=== PATIENT | female | born 1985 | race American Indian/Alaskan Native ===

== ENCOUNTER 2019-12-04 19:46 | Emergency (ER) | payer MEDICARE ==
[2019-12-04] MEDS ORDERED: SODIUM CHLORIDE 0.9% 1000 ML 1,000 ML IV ONE (20:32)
[2019-12-04] MEDS ORDERED: levETIRAcetam 1000 MG/NS 0.75% 1,000 MG/100 ML BAG IV ONE (20:33)
--- NOTE | 2019-12-04 20:34 | Emergency Department Report ---
ED Seizure HPI - General Chief Complaint: Altered Mental Status Stated Complaint: SEIZURE Time Seen by Provider: 12/04/19 20:05 Source: EMS Mode of arrival: Stretcher Limitations: Altered Mental Status - History of Present Illness Initial Comments: Patient is a 34-year-old female that presents emergency room for seizure activity. Patient states she feels almost back to baseline except for being a little fatigued. Patient states she has approximately 3 seizures per week. Patient states she sees a neurologist. Patient states she is compliant with her medications. Patient denies recent trauma. Patient states that she had an aura of the seizure coming on she was able to sit down. Patient states she does not know how long the seizure lasted. Patient denies chest pain. Patient denies shortness of breath. Patient denies any pain at this time. Patient denies any physical complaints except for fatigue. Patient states that she always has difficulties talking and has been going on for many years after seizures. Patient states she is seeing a new neurologist and he is making changes to her seizure medications. Patient denies recent travel. Patient denies recent international travel. Patient denies exposure to the novel coronavirus. Patient denies sick contacts. Patient denies fever and chills. Patient denies cough. Patient denies diarrhea. Patient denies coming in contact with anybody with symptoms of the novel coronavirus. MD Complaint: seizure -: Sudden Description of Episode: loss of consciousness, tonic-clonic movement, post-event confusion Witnessed:: No Trauma: No Seizure History: known seizure disorder, compliant with medication Place: home Possible Precipitating Event: none Associated Symptoms: denies: chest pain, confusion, cough, diaphoresis, fever/chills, loss of appetite, malaise, rash, shortness of breath, syncope, weakness, tongue injury, shoulder dislocation Treatments Prior to Arrival: none - Related Data Home Medications Medication Instructions Recorded Confirmed Last Taken Bupropion HCl [Wellbutrin XL] 300 mg PO QAM 06/15/14 12/02/15 05/10/15 amLODIPine 5 mg PO DAILY 06/15/14 12/02/15 05/11/15 04:45 u Furosemide [Lasix TAB] 40 mg PO QDAY 05/11/15 12/02/15 05/10/15 Insulin Aspart (Nf) [NovoLOG 100 10 unit SQ TID 05/11/15 12/02/15 05/10/15 UNITS/ML VIAL] Metoprolol [Lopressor TAB] 50 mg PO DAILY 05/11/15 12/02/15 05/10/15 Simvastatin (Nf) [Zocor TAB] 20 mg PO QHS 05/11/15 12/02/15 05/10/15 lisinopriL [Zestril TAB] 20 mg PO QDAY 05/11/15 12/02/15 05/11/15 04:45 Moxifloxacin HCl [Vigamox 0.5%] 1 drop OP Q8HR 08/04/15 12/02/15 Unknown Vancomycin HCl 1 drops OS BID 08/04/15 12/02/15 Unknown methylPREDNISolone 4 mg PO DAILY 08/04/15 12/02/15 Unknown Previous Rx's Medication Instructions Recorded Last Taken Type HYDROcodone/APAP 7.5-325 [[place] 1 each PO Q8HR PRN #10 tablet 12/02/15 Unknown Rx 7.5-325 mg TAB] Diclofenac Sodium [Voltaren] 100 gm TP Q6H #1 gel..gram. 12/05/17 Unknown Rx Allergies Allergy/AdvReac Type Severity Reaction Status Date / Time indomethacin Allergy Mild Vomiting Verified 12/02/15 12:13 ED Review of Systems ROS: Stated complaint: SEIZURE Other details as noted in HPI Constitutional: denies: chills, fever Eyes: denies: eye pain, eye discharge, vision change ENT: denies: ear pain, throat pain Respiratory: denies: cough, shortness of breath, wheezing Cardiovascular: denies: chest pain, palpitations Endocrine: no symptoms reported Gastrointestinal: denies: abdominal pain, nausea, diarrhea Genitourinary: denies: urgency, dysuria, discharge Musculoskeletal: denies: back pain, joint swelling, arthralgia Skin: denies: rash, lesions Neurological: as per HPI. denies: headache, weakness, paresthesias Psychiatric: denies: anxiety, depression Hematological/Lymphatic: denies: easy bleeding, easy bruising ED Past Medical Hx - Past Medical History Previous Medical History?: Yes Hx Hypertension: Yes Hx Congestive Heart Failure: No Hx Diabetes: Yes Hx Arthritis: Yes Hx Asthma: Yes Hx COPD: No Additional medical history: anemia (Dr Barbour) - Surgical History Past Surgical History?: Yes Additional Surgical History: cornea transplant - Family History Family history: no significant - Social History Smoking Status: Never Smoker Substance Use Type: None - Medications Home Medications: Home Medications Medication Instructions Recorded Confirmed Last Taken Type Bupropion HCl [Wellbutrin XL] 300 mg PO QAM 06/15/14 12/02/15 05/10/15 History amLODIPine 5 mg PO DAILY 06/15/14 12/02/15 05/11/15 04:45 History u Furosemide [Lasix TAB] 40 mg PO QDAY 05/11/15 12/02/15 05/10/15 History Insulin Aspart (Nf) [NovoLOG 100 10 unit SQ TID 05/11/15 12/02/15 05/10/15 History UNITS/ML VIAL] Metoprolol [Lopressor TAB] 50 mg PO DAILY 05/11/15 12/02/15 05/10/15 History Simvastatin (Nf) [Zocor TAB] 20 mg PO QHS 05/11/15 12/02/15 05/10/15 History lisinopriL [Zestril TAB] 20 mg PO QDAY 05/11/15 12/02/15 05/11/15 04:45 History Moxifloxacin HCl [Vigamox 0.5%] 1 drop OP Q8HR 08/04/15 12/02/15 Unknown History Vancomycin HCl 1 drops OS BID 08/04/15 12/02/15 Unknown History methylPREDNISolone 4 mg PO DAILY 08/04/15 12/02/15 Unknown History HYDROcodone/APAP 7.5-325 [[place] 1 each PO Q8HR PRN #10 tablet 12/02/15 Unknown Rx 7.5-325 mg TAB] Diclofenac Sodium [Voltaren] 100 gm TP Q6H #1 gel..gram. 12/05/17 Unknown Rx ED Physical Exam - General Limitations: No Limitations General appearance: alert, in no apparent distress - Head Head exam: Present: atraumatic, normocephalic - Eye Eye exam: Present: normal appearance - ENT ENT exam: Present: mucous membranes moist - Neck Neck exam: Present: normal inspection - Respiratory Respiratory exam: Present: normal lung sounds bilaterally. Absent: respiratory distress - Cardiovascular Cardiovascular Exam: Present: regular rate, normal rhythm. Absent: systolic murmur, diastolic murmur, rubs, gallop - GI/Abdominal GI/Abdominal exam: Present: soft, normal bowel sounds - Extremities Exam Extremities exam: Present: normal inspection - Back Exam Back exam: Present: normal inspection - Neurological Exam Neurological exam: Present: alert, oriented X3 - Psychiatric Psychiatric exam: Present: normal affect, normal mood - Skin Skin exam: Present: warm, dry, intact, normal color. Absent: rash ED Course Vital Signs 12/04/19 20:19 Temperature 98.5 F Pulse Rate 110 H Respiratory 18 Rate Blood Pressure 143/92 O2 Sat by Pulse 99 Oximetry - Reevaluation(s) Reevaluation #1: Patient speech is back to normal. Patient states she is feeling back to baseline. Patient denies any physical complaints. I discussed all results and clinical findings with patient. I discussed plan of care with patient. Patient agrees with plan of care. Patient is stable for discharge. Patient will be discharged home. Patient given discharge instructions. Patient voiced understanding of discharge instructions. 12/04/19 23:09 ED Medical Decision Making - Lab Data Result diagrams: 12/04/19 20:42 12/04/19 20:42 - Radiology Data Radiology results: report reviewed No acute findings on head CT per radiology report. - Medical Decision Making Patient is a 34-year-old female that presents emergency room complaints of seizure activity. Patient states that she has multiple seizures per month. Patient is being followed by a neurologist. Patient's neurologist been changing her medications. Patient given Keppra in the ER. Patient denies any further seizure activity in the ER. Patient had labs done which were essentially unremarkable. Patient had a head CT which was negative for acute findings. Patient stable for discharge. Patient will be discharged home. Patient given seizure precautions. - Differential Diagnosis Seizure, medication changes, breakthrough seizure, dehydration, stress Critical care attestation.: If time is entered above; I have spent that time in minutes in the direct care of this critically ill patient, excluding procedure time. ED Disposition Clinical Impression: Seizure Disposition: DC-01 TO HOME OR SELFCARE Is pt being admited?: No Does the pt Need Aspirin: No Condition: Stable Instructions: Epilepsy (ED), Recurrent Seizures Adult (ED), Women and Epilepsy (ED) Additional Instructions: Patient to follow-up with primary care in 2 to 3 days. Patient to follow-up with neurologist in 2 to 3 days. Patient to rest. Patient to increase water. Patient to avoid strenuous exercise or heavy lifting until cleared by neurologist. Patient to avoid driving. Patient to rest until cleared by primary care and neurologist. Patient to take Tylenol or ibuprofen as needed for pain. Patient to continue all medication. Patient to return to the ER if condition worsens, changes or new symptoms arise. Referrals: PRIMARY CARE, [Primary Care Provider] - 2-3 Days Time of Disposition: 22:44
[2019-12-04 21:19] LABS: Basophils % (Auto) 0.3 % (0.0-1.8); Eosinophils # (Auto) 0.1 K/mm3 (0.0-0.4); Eosinophils % (Auto) 0.9 % (0.0-4.3); Hematocrit 32.9 % (30.3-42.9); Hemoglobin 10.8 gm/dl (10.1-14.3); Lymphocytes # (Auto) 0.9 K/mm3 (1.2-5.4); Lymphocytes % (Auto) 14.3 % (13.4-35.0); Mean Corpuscular HGB Conc 33 % (30-34); Mean Corpuscular Volume 76 fl (79-97); Monocytes # (Auto) 0.3 K/mm3 (0.0-0.8); Platelet Count 348 K/mm3 (140-440); Red Blood Count 4.34 M/mm3 (3.65-5.03); Red Cell Distribution Width 14.7 % (13.2-15.2)
--- NOTE | 2019-12-04 21:26 | Cat Scan Report ---
CT HEAD WITHOUT CONTRAST INDICATION / CLINICAL INFORMATION: Seizure TECHNIQUE: All CT scans at this location are performed using CT dose reduction for ALARA by means of automated e xposure control. COMPARISON: None available. FINDINGS: HEMORRHAGE: No evidence of intracranial hemorrhage or extra-axial fluid collection. EXTRA-AXIAL SPACES: Cortical sulci, sylvian fissures and basilar cisterns have an unremarkable appear ance. VENTRICULAR SYSTEM: The ventricular system is of normal size and configuration. CEREBRAL PARENCHYMA: No areas of abnormal brain parenchymal attenuation are identified. There is no i ndication of recent infarction. MIDLINE SHIFT OR HERNIATION: There is no mass effect. CEREBELLUM / BRAINSTEM: Brainstem and cerebellum have an unremarkable appearance. MIDLINE STRUCTURES:No abnormalities of the pituitary gland or pineal region are identified. INTRACRANIAL VESSELS:No abnormalities are identified on this noncontrast head CT. ORBITS: visualized portions of the orbits have an unremarkable appearance. SOFT TISSUES of HEAD: No significant abnormality. CALVARIUM: Evaluation of bone windows reveals no abnormalities. PARANASAL SINUSES / MASTOID AIR CELLS: Paranasal sinuses are free from inflammatory mucosal disease. Mastoid air cells are normally pneumatized. IMPRESSION: 1. No abnormalities are identified on head CT without contrast. Signer Name: Rock Magana MD Signed: 12/04/2019 9:22 PM Workstation Name: [id number]
[2019-12-04 21:27] LABS: Alanine Aminotransferase 25 units/L (7-56); Albumin 4.3 g/dL (3.9-5); Blood Urea Nitrogen 7 mg/dL (7-17); Calcium 9.2 mg/dL (8.4-10.2); Hemolysis Index 2
[2019-12-04 21:33] LABS: BUN/Creatinine Ratio 12
[2019-12-04 21:55] LABS: Bacteria,Urine 1+ /HPF (Negative); Bilirubin,Urine NEG (Negative); Blood,Urine NEG (Negative); Color,Urine Yellow (Yellow); Mucus,Urine FEW /HPF; Protein,Urine <15 mg/dL mg/dL (Negative); Urobilinogen,Urine < 2.0 mg/dL (<2.0)
[2019-12-04 21:59] LABS: Amphetamine Screen,Urine PRESUMPTIVE NEGATIVE; Benzodiazepines Screen,Urine PRESUMPTIVE NEGATIVE; Cannabinoid Screen,Urine PRESUMPTIVE NEGATIVE; Cocaine Screen,Urine PRESUMPTIVE NEGATIVE; Methadone Screen,Urine PRESUMPTIVE NEGATIVE; Opiate Screen,Urine PRESUMPTIVE NEGATIVE
[2019-12-04 22:29] LABS: HCG Qualitative,Urine Negative (Negative)
[2019-12-04 23:17] VITALS: BP 163/98
== END 2019-12-04 23:38 | disposition home or self-care (01) ==
LOC: ED 19:46
DX: R56.9 Unspecified convulsions (principal); R41.82 Altered mental status, unspecified; I10 Essential (primary) hypertension; E11.9 Type 2 diabetes mellitus without complications; M19.91 Primary osteoarthritis, unspecified site; J45.909 Unspecified asthma, uncomplicated; Z98.890 Other specified postprocedural states; Z79.4 Long term (current) use of insulin; Z79.2 Long term (current) use of antibiotics; Z79.899 Other long term (current) drug therapy; Z88.8 Allergy status to other drugs, medicaments and biological substances
CPT/HCPCS: 36415; 70450; 80053; 80307; 81001; 81025; 85025; 96365; 99284; J1953; J7030; 80320; G0480